=== PATIENT | male | born 1960 | race Caucasian/White ===

== ENCOUNTER 2019-12-05 16:43 | Emergency (ER) | payer OTHER, SELFPAY ==
[~2019-12-05] VITALS: Ht 172.7 cm; Wt 65.0 kg
[2019-12-05 16:49] VITALS: BP 136/77
== END 2019-12-05 18:23 | disposition home or self-care (01) ==
LOC: M ED 16:43 → EDBD 16:43 → M ED 18:23
DX: Z04.1 Encounter for examination and observation following transport accident (principal); V43.52XA Car driver injured in collision with other type car in traffic accident, initial encounter; Y92.410 Unspecified street and highway as the place of occurrence of the external cause; Z87.19 Personal history of other diseases of the digestive system